=== PATIENT | female | born 1980 | race Caucasian/White ===

== ENCOUNTER 2018-03-01 18:14 | Emergency (ER) | payer OTHER ==
[~2018-03-01] VITALS: Ht 157.5 cm; Wt 63.6 kg
[2018-03-01 19:50] LABS: BASOPHIL (%) 0.2 % (0-1); EOSINOPHIL (%) 0.7 % (0-5); EOSINOPHIL COUNT 0.1 K/uL (0-0.3); HEMATOCRIT 39.9 % (36.0-46.0); HEMOGLOBIN 13.8 G/DL (11.9-15.5); IMMATURE GRANULOCYTE (%) 0.4 % (0.0-0.7); LYMPHOCYTE (%) 19.2 % (15-42); LYMPHOCYTE COUNT 2.6 K/uL (1.0-2.8); MCH 29.3 PG (29.0-34.0); MCHC 34.6 G/DL (30.0-36.0); MCV 84.7 FL (83-99); MONOCYTE (%) 5.2 % (3-12); MONOCYTE COUNT 0.7 K/uL (0-0.8); NEUTROPHIL (%) 74.3 % (45-76); NEUTROPHIL COUNT 9.9 K/uL (1.8-6.4); PLATELET COUNT 299 K/uL (156-360); RBC DIS.WIDTH-CV 12.5 % (11.8-14.6); RED BLOOD COUNT 4.71 M/uL (3.80-5.20); WHITE BLOOD COUNT 13.4 K/uL (4.1-10.2)
[2018-03-01 19:57] LABS: CHLORIDE 105 mEq/L (99-109); D-DIMER ELISA < 150.00 ng/mLDDU (<230); POTASSIUM 3.8 mEq/L (3.7-5.4); SODIUM 140 mEq/L (136-147)
[2018-03-01 19:59] LABS: GLUCOSE 129 mg/dL (70-99)
[2018-03-01 20:03] LABS: CREATININE 0.8 mg/dL (0.6-1.3); GFR ESTIMATE (CALCULATED) > 59 mL/min/
[2018-03-01 20:04] LABS: UREA NITROGEN (BUN) 9 mg/dL (9-23)
[2018-03-01 20:11] LABS: TROP-I INTERPRETATION NEGATIVE; TROPONIN-I < 0.01 ng/mL (0.0-0.30)
[2018-03-01] MEDS ORDERED: ULTRAM50 MG PO (21:00)
[2018-03-01 21:20] VITALS: BP 124/71
== END 2018-03-01 21:15 | disposition home or self-care (01) ==
LOC: EME 18:14
PROVIDERS: Emergency Medicine
DX: G62.9 Polyneuropathy, unspecified (principal); F32.9 Major depressive disorder, single episode, unspecified; F41.9 Anxiety disorder, unspecified; Z88.0 Allergy status to penicillin
CPT/HCPCS: 70450; 71045; 72125; 80048; 84484; 85025; 85379; 85610; 85730; 93005; 99281; 99284

== ENCOUNTER 2018-05-10 16:52 | Emergency (ER) | payer OTHER ==
[~2018-05-10] VITALS: Ht 157.5 cm; Wt 61.7 kg
[~2018-05-10 16:52] MED LIST: ULTRAM50 MG PO
[2018-05-10 17:22] LABS: HEMATOCRIT 39.1 % (36.0-46.0); HEMOGLOBIN 13.8 G/DL (11.9-15.5); MCH 29.2 PG (29.0-34.0); MCHC 35.3 G/DL (30.0-36.0); MCV 82.8 FL (83-99); PLATELET COUNT 313 K/uL (156-360); RBC DIS.WIDTH-CV 12.5 % (11.8-14.6); RED BLOOD COUNT 4.72 M/uL (3.80-5.20); WHITE BLOOD COUNT 11.7 K/uL (4.1-10.2)
[2018-05-10 17:29] LABS: ALBUMIN 4.5 g/dL (3.2-4.8)
[2018-05-10 17:30] LABS: CHLORIDE 105 mEq/L (99-109); POTASSIUM 3.5 mEq/L (3.7-5.4); SODIUM 139 mEq/L (136-147)
[2018-05-10 17:32] LABS: GLUCOSE 101 mg/dL (70-99); TOTAL PROTEIN 8.1 g/dL (6.4-8.3)
[2018-05-10 17:34] LABS: TOTAL BILIRUBIN 0.5 mg/dL (0.0-1.0)
[2018-05-10 17:35] LABS: ALKALINE PHOSPHATASE 66 IU/L (3-129)
[2018-05-10 17:36] LABS: CREATININE 0.8 mg/dL (0.6-1.3); GFR ESTIMATE (CALCULATED) > 59 mL/min/
[2018-05-10 17:37] LABS: AST (GOT) 25 IU/L (2-34); UREA NITROGEN (BUN) 10 mg/dL (9-23)
[2018-05-10 17:38] LABS: ALT (GPT) 25 IU/L (3-49)
[2018-05-10 17:50] LABS: QUANTITATIVE HCG < 4.0 MIU/ML
[2018-05-10 18:51] LABS: APPEARANCE SL.HAZY ((CLEAR)); BILIRUBIN NEGATIVE; BLOOD LARGE; COLOR YELLOW ((YELLOW)); GLUCOSE (STRIP) NEGATIVE; KETONES 80; LEUKOCYTES TRACE; NITRITE NEGATIVE; PROTEIN (STRIP) 30; SPECIFIC GRAVITY 1.014 (1.000-1.030); UROBILINOGEN 0.2 MG/DL (0.2-1.0)
[2018-05-10 19:17] LABS: BACTERIA RARE /HPF; EPITHELIAL CELLS RARE /HPF; MUCUS TRACE /LPF; UCUL ADDED? YES
[2018-05-10 21:35] VITALS: BP 131/79
== END 2018-05-10 21:35 | disposition home or self-care (01) ==
LOC: RME 16:52 → EME 16:52 → RME 21:35
DX: R53.83 Other fatigue (principal); R51 Headache; N39.0 Urinary tract infection, site not specified; F32.9 Major depressive disorder, single episode, unspecified; F41.9 Anxiety disorder, unspecified; Z88.0 Allergy status to penicillin
CPT/HCPCS: 70450; 80053; 81003; 84702; 85027; 87086; 99281; 99285; J1200; J1885; J2765; J7030